=== PATIENT | male | born 1950 | race Caucasian/White ===

== ENCOUNTER 2018-01-24 17:26 | Emergency (ER) | payer MEDICARE ==
--- NOTE | 2018-01-24 17:52 | ERPHSYRPT ---
- History of Present Illness Source: patient Exam Limitations: no limitations Occurred: this afternoon (symptoms for 2 hours) Method of Injury: unknown Quality: aching Severity of Pain-Max: mild Severity of Pain-Current: mild Extremities Pain Location: forearm: left Modifying Factors: Improves With: other (Recent back surgery) <RONEL PAULINO - Last Filed: 01/24/18 19:09> <HEIDI MAY - Last Filed: 01/24/18 20:53> - History of Present Illness Time Seen by Provider: 01/24/18 17:47 Physician History: 67-year-old white male arrives with complaint of a tender area on his left anterior forearm symptoms for 2 hours he states that he had back surgery 4 days ago. He denies any other complaints. Past medical history includes high blood pressure, diabetes, back surgery, bilateral shoulder arthroscopic. Social history patient denies tobacco alcohol or illicit drug use (RONEL PAULINO) Allergies/Adverse Reactions: Sulfa (Sulfonamide Antibiotics) Allergy (Intermediate, Verified 01/24/18 17:52) - Review of Systems Constitutional: No Fever, No Chills Eyes: No Symptoms Ears, Nose, & Throat: No Symptoms Respiratory: No Cough, No Dyspnea Cardiac: No Chest Pain, No Edema, No Syncope Abdominal/Gastrointestinal: No Abdominal Pain, No Nausea, No Vomiting, No Diarrhea Genitourinary Symptoms: No Dysuria Musculoskeletal: Other (tender area left anterior forearm) Skin: No Rash Neurological: No Dizziness, No Focal Weakness, No Sensory Changes Psychological: No Symptoms Endocrine: No Symptoms All Other Systems: Reviewed and Negative <RONEL PAULINO - Last Filed: 01/24/18 19:09> - Past Medical History Pertinent Past Medical History: Yes Cardiac History: Hypertension Endocrine Medical History: Diabetes Type II Musculoskeletal History: Other (bilateral shoulder arthroscopy, back surgery) - Past Surgical History Musculoskeletal: Other (bilateral shoulder arthroscopy, back surgery) <RONEL PAULINO - Last Filed: 01/24/18 19:09> - Physical Exam General Appearance: alert Eyes, Ears, Nose, Throat Exam: moist mucous membranes Neck Exam: non-tender, supple Cardiovascular/Respiratory Exam: chest non-tender, normal breath sounds, regular rate/rhythm, no respiratory distress Abdominal Exam: non-tender, No guarding Back Exam: normal inspection, No vertebral tenderness Shoulder Exam: normal inspection, non-tender, no evidence of injury, normal ROM Elbow/Forearm Exam: no evidence of injury, normal ROM, No normal inspection (3 cm area of firmness and tenderness left anterior proximal forearm) Wrist Exam: normal inspection, non-tender, no evidence of injury, normal ROM Hand Exam: normal inspection, non-tender, no evidence of injury, normal ROM Neuro/Tendon Exam: normal sensation, normal motor functions Mental Status Exam: alert, oriented x 3, cooperative Skin Exam: normal color, warm, dry SpO2 Interpretation: normal (99%) <RONEL PAULINO - Last Filed: 01/24/18 19:09> - Nursing Vital Signs Nursing Vital Signs: Initial Vital Signs Temperature 97.8 F 01/24/18 17:42 Pulse Rate 78 01/24/18 17:42 Respiratory Rate 18 01/24/18 17:42 Blood Pressure 150/75 01/24/18 17:42 O2 Sat by Pulse Oximetry 99 01/24/18 17:42 Pain Scale Pain Intensity 3 - Course Nursing assessment & vital signs reviewed: Yes <RONEL PAULINO - Last Filed: 01/24/18 19:09> Ordered Tests: Active Orders 24 hr Category Date Time Status VENOUS UNILAT/LIMITED EXTREMIT [US] Stat Exams 01/24/18 Ordered BMP Stat Lab 01/24/18 17:57 Completed CBC W DIFF Stat Lab 01/24/18 17:57 Completed D-DIMER QUANTITATION Stat Lab 01/24/18 17:57 Completed PROTIME WITH INR Stat Lab 01/24/18 17:57 Completed PTT Stat Lab 01/24/18 17:57 Completed Lab/Rad Data: Laboratory Result Diagrams 01/24/18 17:57 01/24/18 17:57 Laboratory Results 01/24/18 01/24/18 01/24/18 Range/Units 17:57 17:57 17:57 WBC 9.8 (4.0-10.5) K/mm3 RBC 4.71 (4.1-5.6) M/mm3 Hgb 14.7 (12.5-18.0) gm/dl Hct 43.5 (42-50) % MCV 92.4 (78-100) fl MCH 31.2 (26-32) pg MCHC 33.8 (32-36) g/dl RDW 13.8 (11.5-14.0) % Plt Count 227 (150-450) K/mm3 MPV 9.9 H (6-9.5) fl Gran % 67.0 H (36.0-66.0) % Eos # (Auto) 0.22 (0-0.5) Absolute Lymphs (auto) 2.08 (1.0-4.6) Absolute Monos (auto) 0.90 (0.0-1.3) Lymphocytes % 21.2 L (24.0-44.0) % Monocytes % 9.2 (0.0-12.0) % Eosinophils % 2.2 (0.00-5.0) % Basophils % 0.4 (0.0-0.4) % Absolute Granulocytes 6.58 (1.4-6.9) Basophils # 0.04 (0-0.4) PT 11.7 (8.83-12.87) SECONDS INR 1.01 (0.8-3.0) APTT 30.5 (24.1-36.1) SECONDS D-Dimer 790 H* (215-500) ng/mL Sodium 139 (137-145) mmol/L Potassium 4.2 (3.5-5.1) mmol/L Chloride 99 (98-107) mmol/L Carbon Dioxide 27 (22-30) mmol/L Anion Gap 16.3 H (5-15) MEQ/L BUN 21 H (9-20) mg/dL Creatinine 0.94 (0.66-1.25) mg/dL Estimated GFR > 60.0 ML/MIN Glucose 104 (74-106) mg/dL Calcium 9.5 (8.4-10.2) mg/dL - Progress Progress: improved <RONEL PAULINO - Last Filed: 01/24/18 19:09> <HEIDI MAY - Last Filed: 01/24/18 20:53> - Progress Progress Note: 01/24/18 18:49 This is a 67-year-old white male who had recent back surgery 4 days ago arrives with complaint of tender area left anterior forearm area feels firm he states this is going on for approximately 2 hours prior to arrival. Patient with positive elevated d-dimer. Venous Doppler left upper extremity has been ordered. 01/24/18 19:08 The patient's case has been transferred to Dr. May secondary to shift change. The case has been discussed with Dr. May. (RONEL PAULINO) 01/24/18 20:50 The US of the upper extremity shows a cephalic thrombosis. The patient has norco at home for pain. I spoke to Dr Oviedo who says that symptomatic care is all that is needed. Pt will be d/c home. (HEIDI MAY) <RONEL PAULINO - Last Filed: 01/24/18 19:09> - Departure Time of Disposition: 20:52 Departure Disposition: Home Critical Care Time: No <HEIDI MAY - Last Filed: 01/24/18 20:53> - Departure Clinical Impression: Superficial thrombophlebitis of arm Qualifiers: Laterality: left Qualified Code(s): I80.8 - Phlebitis and thrombophlebitis of other sites Condition: Stable Referrals: SHANTANU OVIEDO MD [ASSOCIATE STAFF] - Instructions: Phlebitis (DC) Additional Instructions: Follow up with Dr Oviedo if the arm pain is not improved or any fever or chills.
[2018-01-24 18:00] LABS: BASOPHIL % 0.4 % (0.0-0.4); Basophil (Absolute #) 0.04 (0-0.4); Eosinophil % 2.2 % (0.00-5.0); Eosinophil (Absolute #) 0.22 (0-0.5); Granulocyte Absolute (ANC) 6.58 (1.4-6.9); Hematocrit 43.5 % (42-50); Hemoglobin 14.7 gm/dl (12.5-18.0); Lymphocyte (Absolute #) 2.08 (1.0-4.6); Lymphocytes % 21.2 % (24.0-44.0); Mean Cell Volume 92.4 fl (78-100); Mean Corpuscular Hemoglobin 31.2 pg (26-32); Mean Corpuscular Hgb Concent. 33.8 g/dl (32-36); Mean Platelet Volume 9.9 fl (6-9.5); Monocytes % 9.2 % (0.0-12.0); Platelet Count 227 K/mm3 (150-450); Red Blood Count 4.71 M/mm3 (4.1-5.6); Red Cell Distribution Width 13.8 % (11.5-14.0); White Blood Count 9.8 K/mm3 (4.0-10.5)
[2018-01-24 18:16] LABS: ANION GAP 16.3 MEQ/L (5-15); BLOOD UREA NITROGEN 21 mg/dL (9-20); CHLORIDE 99 mmol/L (98-107); Calcium 9.5 mg/dL (8.4-10.2); Carbon Dioxide 27 mmol/L (22-30); Creatinine 1 0.94 mg/dL (0.66-1.25); Glucose 104 mg/dL (74-106); Potassium 4.2 mmol/L (3.5-5.1); SODIUM 139 mmol/L (137-145)
[2018-01-24 18:17] LABS: INR 1.01 (0.8-3.0)
[2018-01-24 18:19] LABS: PTT 30.5 SECONDS (24.1-36.1)
[2018-01-24 21:07] VITALS: BP 134/73; PULSE 85; O2SAT 96
--- NOTE | 2018-01-24 21:46 | XRAY ---
Indication: Left forearm lump at previous IV site. Two-dimensional sonogram and color Doppler imaging of the major venous vessels of the left upper extremity was performed. Comparison: None Cephalic vein demonstrates long segment of occluding thrombus. Elsewhere no thrombus seen in the remaining visualized jugular, subclavian, axillary, brachial, basilic, median cubital, ulnar, and radial veins. Impression: Occluding thrombus in the cephalic vein. Comment: Preliminary report was given.
== END 2018-01-24 21:07 | disposition home or self-care (01) ==
LOC: ED 17:26
DX: I80.8 Phlebitis and thrombophlebitis of other sites (principal); Z98.890 Other specified postprocedural states; R79.1 Abnormal coagulation profile
CPT/HCPCS: 36415; 80048; 85025; 85379; 85610; 85730; 93971; 99284